=== PATIENT | male | born 1995 ===

== ENCOUNTER 2018-08-04 18:25 | Inpatient (IN) | payer OTHER ==
--- NOTE | 2018-08-04 18:36 | EDPHY ---
HPI/HX/ROS/PE/MDM Narrative: CHIEF COMPLAINT: M1 - delusions, homicidal ideation HPI: This patient is a 23 year old male arriving on M1 hold by police for delusions, ideas of grandeur, possible homicidal ideation. Police received a call from the patient's friend in [place] who had been talking to him on a social media messenger service. Per police summary, the patient had begun to discuss plans to "nuke [employer], and blow up [employer]" as well as talking about killing various people. The patient told the friend he was near the [employer] in [place], and police did find the patient there. The patient initially stated he had "WMDs " in his bag, but police found no weapons on him. He was reportedly agitated and manic-appearing on scene. The patient denies any significant past medical history. Denies recent illness or trauma. He appears calm and cooperative currently. REVIEW OF SYSTEMS: A comprehensive 10 system review of systems is otherwise negative aside from elements mentioned in the history of present illness and medical decision making. PMH: Patient denies. SOCIAL HISTORY: Single. Lives in [place]. PHYSICAL EXAM: General:Patient is awake, in no acute distress. Head: Atraumatic, normocephalic ENT:Eyes are normal to inspection. ENT inspection normal. Neck: Normal inspection. Full range of motion. Respiratory:No respiratory distress. No stridor. Skin: Normal color. No rash. Warm and dry. Extremities: Normal appearance. Full range of motion. Neuro: Normal motor function. Normal sensory function. Psychiatric: Disorganized. (Bhavin Pimentel) ED Course: 23 year old male arriving on M1 hold by police for delusions, ideas of grandeur , possible homicidal ideation. Exam unremarkable. Plan for labs including CBC, chemistries, tox screen. Initially calm during my interview, the patient became quite agitated around 19: 15. He began hitting his head against the wall and pounding his fists, yelling, kicking, and threatening to harm or kill staff. He refused PO Zyprexa. Administered 10mg IM Haldol and 2mg IM Ativan. The patient remained escalated and required physical restraints to protect the patient and staff. Labs largely unremarkable. Tox screen positive for marijuana. (Bhavin Pimentel ) Patient was stable throughout my shift, did not require any additional medication, is awaiting evaluation this morning. (Ana Mitchell) MDM: I assumed care of the patient at 0700am. 2:20 p.m.: The patient was accepted for involuntary psychiatric admission by Dr. Goldy Chaparro at [facility]. I have filled out the EMTALA transfer form. (Dorian Gaitan) - Data Points Laboratory Results: Laboratory Results 08/04/18 18:30 08/04/18 18:30 Medications Given: Discontinued Medications Haloperidol Lactate (Haldol Injection) 10 mg IM EDNOW ONE Stop: 08/04/18 19:22 Last Admin: 08/04/18 19:32 Dose: 10 mg Haloperidol Lactate (Haldol Injection) 5 mg IM EDNOW ONE Stop: 08/04/18 19:40 Last Admin: 08/04/18 20:41 Dose: 5 mg Lorazepam (Ativan Injection) 1 mg IM EDNOW ONE Stop: 08/04/18 19:22 Last Admin: 08/04/18 19:32 Dose: 1 mg Lorazepam (Ativan Injection) 2 mg IVP EDNOW ONE Stop: 08/04/18 19:40 Last Admin: 08/04/18 20:41 Dose: 2 mg Lorazepam (Ativan) 1 mg PO EDNOW ONE Stop: 08/04/18 20:19 Last Admin: 08/04/18 20:19 Dose: 1 mg Olanzapine (Zyprexa Zydis) 5 mg PO EDNOW ONE Stop: 08/04/18 19:18 Last Admin: 08/04/18 19:33 Dose: Not Given Olanzapine (Zyprexa Zydis) 10 mg PO EDNOW ONE Stop: 08/04/18 20:19 Last Admin: 08/04/18 20:19 Dose: 10 mg General Time Seen by Provider: 08/04/18 18:25 Initial Vital Signs: Initial Vital Signs Temperature (C) 36.7 C 08/04/18 18:33 Heart Rate 97 08/04/18 18:33 Respiratory Rate 16 08/04/18 18:33 Blood Pressure 130/106 H 08/04/18 18:33 O2 Sat (%) 98 08/04/18 18:33 O2 Delivery Mode Room Air Allergies/Adverse Reactions: No Known Allergies Allergy (Unverified 08/04/18 18:42) Home Medications: Medication Instructions Recorded Synthroid 08/04/18 Departure - Departure Disposition: [facility] IP Clinical Impression: Acute psychosis Condition: Good Report Scribed for: Bhavin Pimentel Report Scribed by: Shayy Allan Date of Report: 08/04/18 Time of Report: 19:04 Physician Review and Approval Statement: Portions of this note were transcribed by an ED scribe. I personally performed the history, physical exam, and medical decision making; and confirm the accuracy of the information in the transcribed note.
[2018-08-04 18:53] LABS: PLATELET COUNT 325 10^3/uL (150-400)
[2018-08-04] MEDS ORDERED: OLANZapine DISINTEGR 5 MG TAB PO ONE (19:17)
[2018-08-04] MEDS ORDERED: LORazepam 2 MG/ML INJ IM ONE (19:21)
[2018-08-04] MEDS ORDERED: HALOPERIDOL LACT 5 MG/ML INJ IM ONE ×2 (19:21→19:39)
[2018-08-04] MEDS ORDERED: LORazepam 2 MG/ML INJ ONE ×2 (19:22→19:39)
[2018-08-04] MEDS ORDERED: HALOPERIDOL LACT 5 MG/ML INJ ONE (19:22)
[2018-08-04] MEDS ORDERED: LORazepam 2 MG/ML INJ IVP ONE (19:39)
[2018-08-04] MEDS ORDERED: OLANZapine DISINTEGR 10 MG TAB ONE (20:15)
[2018-08-04] MEDS ORDERED: LORazepam 1 MG TAB ONE (20:16)
[2018-08-04] MEDS ORDERED: OLANZapine DISINTEGR 10 MG TAB PO ONE (20:18)
[2018-08-04] MEDS ORDERED: LORazepam 1 MG TAB PO ONE (20:18)
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
[2018-08-05] MEDS ORDERED: OLANZapine DISINTEGR 10 MG TAB ONE (14:17)
--- NOTE | 2018-08-05 14:21 | ASMTTCLDSP ---
TLC Discharge Disposition Disposition: Answers: Admit Disposition Notes: Notes: In consultation with [facility] ED physician, Alex Gaitan MD, and on-call HANDLE SEWER, Alvaro Corrigan both concurred that pt appears to meet 27-65 criteria requiring psychiatric hospitalization as pt appears to be at risk of harm to self due to a mental illness condition. Pt was given the 3[facility] prohibited belongings list while in the ED. Discharge Concerns/Recommendations: Notes: Pt admitted to [facility] BH unit. Was patient given the Answers: Yes Inpatient Behavioral Health Prohibited Belongings List while in the ED? For inpatient Alvaro Corrigan admission, the following psychiatrist agreed to accept patient for admission to Behavioral Health ([facility]): Type of Hold: Answers: M1/72-hour Hold Hold initiated by: Answers: Other Notes: Community Crisis Workforce Management Consultant Date Signed: 08/05/2018 02:20 PM Electronically Signed By:Kaylee Arrieta
[2018-08-05] MEDS ORDERED: OLANZapine DISINTEGR 10 MG TAB PO ONE (14:24)
--- NOTE | 2018-08-05 15:32 | GCON ---
MEDICINE CONSULTATION DATE OF CONSULTATION: 08/05/2018 CHIEF COMPLAINT: Psychosis. HISTORY OF PRESENT ILLNESS: This is a 23-year-old man with no prior records in our system, who prese nts after being brought in on an M1 hold by police for concerns of homicidal ideation, delusions, and acute psychosis. Apparently, per ER report, police had received a call from this patient's friend titus Trean who noted that he has been discussing plans to "nuke [employer] and blow up [employer]," as well as killing other people. At the time the patient was stating this, he had told his friend that he was n ear the [employer] in [place], and that is where police were able to pick him up. His stay in located within [facility] ER: He has been intermittently agitated and somewhat combative with staff. At the time my evalua tion, the patient is relatively cooperative, though slightly anxious appearing. PAST MEDICAL HISTORY: Per patient report includes hypertension, OCD, and ADHD. PAST SURGICAL HISTORY: Includes circumcision and repair of an eye laceration. FAMILY HISTORY: The patient notes his mother has schizophrenia and depression. Father with hyperten garry and diabetes. SOCIAL HISTORY: The patient states he is originally from [place] and has a computer science degree. He states he smokes a lot of marijuana, but denies alcohol or tobacco use. REVIEW OF SYSTEMS: Negative except as per HPI. MEDICATIONS: Reportedly include Synthroid. ALLERGIES: No known allergies. PHYSICAL EXAMINATION: VITAL SIGNS: BP 134/84, heart rate 85, respiratory rate 16, O2 saturation is 98% on room air, temperature is 37. GENERAL APPEARANCE: This is a disheveled male. He is awake and alert. He is anxious and somewhat agitated. EYES: Anicteric. HENT: Oropharynx clear. CARDIOVAS CULAR: Regular rate and rhythm, no MRG. PULMONARY: CTA bilaterally. SKIN: Warm, dry, well perfus ed. NEURO/PSYCH: The patient is awake, alert, with a normal gait. Strength and sensation seem to b e grossly intact as well as cranial nerves. CLINICAL DATA: Labs reviewed and notable for a white blood cell count of 12.9. Chemistry significan t for an elevated anion gap at 15 and a glucose of 126. Toxicity screen is positive only for marijua na. ASSESSMENT AND PLAN: This is a 23-year-old man with unknown past medical history, but per his report , obsessive-compulsive disorder and attention deficit hyperactivity disorder, presenting with acute p sychosis. 1. Acute psychosis with reported homicidal ideation and aggressive behavior while in the emergency d epartment. He is on an M1 hold and is to be admitted to Behavioral Health. No medical reason to def er any medication thought to be appropriate by psychiatry service. 2. Leukocytosis without other signs or symptoms of infection. No need to repeat at this point. 3. Hyperglycemia. Would recommend he follow up as an outpatient for recheck and to rule out diabete s. 4. Hypertension. This is mild and okay to be monitored at this point. Will not start new medicatio ns currently as I suspect this is at least in part related to his agitation. Thank you for this consultation. Medicine will be available peripherally should questions arise earl kelly this hospitalization. Patient is new to my care. Care plan reviewed with emergency room physician including plans for [facility]. /[id number]/MODL
[2018-08-05] MEDS ORDERED: MAGNESIUM HYDROXIDE 30 ML UDCUP PO PRN (18:40)
[2018-08-05] MEDS ORDERED: LORazepam 0.5 MG TAB PO PRN (18:40)
[2018-08-05] MEDS ORDERED: NICOTINE POLACRILEX 2 MG GUM B PRN (18:40)
[2018-08-05] MEDS ORDERED: ACETAMINOPHEN 325 MG TAB PO PRN (18:40)
[2018-08-05] MEDS ORDERED: MAG HYDROX/AL HYDROX/SIMETH 30 ML UDCUP PO PRN (18:40)
[2018-08-05] MEDS ORDERED: HALOPERIDOL 5 MG TAB PO PRN (18:49)
[2018-08-06] MEDS: LORazepam 1 MG TAB PO PRN (06:40)
[2018-08-06] MEDS ORDERED: LEVOTHYROXINE 137 MCG TAB PO ONE (07:01)
--- NOTE | 2018-08-06 08:00 | ASMTBHMTP ---
Master Treatment Plan Master Treatment Plan Answers: Mood Instability with for: Psychosis Date: 08/05/2018 Diagnosis on Admission: Unspecified Schizophrenia Spectrum and other Psychotic Disorders (298.54) (F31.5) Expected length of stay: 3-5 days Reason for admission: Notes: Per Report: Pt is a 23 year old Eastern [place] male who arrived to [facility] ED on a M1 hold initiated by police for delusional thoughts, ideas of grandeur, and possible homicidal ideation. According to ED report police had received a call from the patient's friend in [place] who had been talking to him on social media messenger service. Per police summary the patient had begun to discuss plans to "nuke [employer], and blow up [employer]." as well as taking about killing various people. The patient had apparently told the friend he was near the [employer] building in [place], and police did find the pt there. The patient initially stated he had WMD in his bag, but police found no weapons on him. He was reported to be agitated and manic appearing on the scene. The patient upon presenting to the ED denies any hx of medical problems recent illness or past trauma. Pt was given Ativan injections and Zyprexa. Last Zyprexa dose was at 20:19 on 08/04/18. Per ED notes pt required restraints from 20:50-21:45. Pt's utox was positive for marijuana. Per M1 hold pt was displaying intense delusional, magical thinking, ideas of grandeur with homicidal thoughts with intense speech, rambling and was illogical when seen in the community by mental health clinician. Pt had verbalized plan to 'blow up [place], etc.' Possible manic. Pt appeared to be agitated with intense anger. References prior mental illness. Patient's stated presenting problems: Notes: "Nothing, I was arrested after someone called and reported fake threats." Patient's goals for treatment: Notes: read, write and make propaganda for Mr. Gerardo..... I want to be his new chief steward/stewardess. Patient's strengths: Notes: adaptive Identify supports outside of hospital: Notes: family in [place] and some friends here in [place].* Discharge criteria: Notes: Patient will demonstrate more stable mood by discharge.* Initial disposition plan/considerations: Notes: To attend [facility] to finish my Ph.D. program. Master Treatment Plan Required Signatures Psychiatrist signature: Answers: Psychiatrist: RN on-shift signature: Answers: RN: Patient signature: Answers: Patient: Date Signed: 08/06/2018 07:59 AM Electronically Signed By:Miguel Barreto
[2018-08-06] MEDS ORDERED: RISPERIDONE 1 MG ODT TAB SL ONE (08:43)
[2018-08-06] MEDS ORDERED: RISPERIDONE 1 MG ODT TAB SL PRN (08:44)
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
[2018-08-06] MEDS ORDERED: LEVOTHYROXINE 137 MCG TAB ONE (11:37)
--- NOTE | 2018-08-06 12:17 | SOAPPROG ---
SOAP Progress Note Assessment/Plan: Assessment: Unspecified Psychosis. Substance Induced Psychosis. Cannabis Use Disorder, Severe. No improvement noted. (see subjective/objective note). Patient is not safe to discharge at this time as patient continues to exhibit signs of psychosis, and express psychosis symptoms. Patient requires continued inpatient care because of current psychosis, and requires inpatient level of care to stabilize in order to no longer be a danger to himself, danger to others , and gravely disabled due to mental illness. Patient could benefit from continued inpatient hospitalization for crisis stabilization, safety, and medication evaluation. Plan: 1. Psychotropic medications: After reviewing options, risks, and benefits patient agrees to continue current medications. No other medication changes at this time as more time is needed to determine ongoing tolerability and efficacy. Plan is to continue to observe patient for response and side effects from medications, and ongoing monitoring and evaluation. 2. Review with patient informed consent and recommendations for psychotropic medication treatment listed below 3. Labs: no additional labs at this time 4. Therapy: continue milieu and group therapy 5. Further investigation including gathering information from patients relatives and review of past case records to inform treatment plan. 6. Safety/Wellness plan and follow-up outpatient appointments to be established prior to discharge. Next steps are for patient to meet with long term care social worker to plan a safe discharge plan and establish outpatient services for ongoing treatment. 7. Confer with inpatient treatment team regarding treatment plan. 8. Psychosocial stressors addressed through case consultant 9. Legal status: M1 to [facility] 10. Consider discharge next week if patient is in stable condition, safe, and has a safe discharge plan. 11. Substance abuse interventions: cannabis PSYCHOTROPIC MEDICATION TREATMENT INFORMED CONSENT and RECOMMENDATIONS: Review nature of condition, diagnosis, and prognosis. Review nature and purpose of psychotropic medication treatment. Review type of psychotropic medications being ordered. Review risk and benefits of psychotropic medication treatment. Review probable length of time patient will need to take medications. Review risk and benefits of not undergoing psychotropic medication treatment. Review alternative treatments to psychotropic medications. Review psychotropic medications contraindications, drug-drug interactions, side effects, and importance of reporting any side effects to a psychiatric provider or nurse during inpatient hospitalization, and upon discharge to patients psychiatric outpatient provider, primary care provider, or other health lead caregiver. Review importance of asking a nurse, psychiatric provider, or primary care provider any questions or problems concerning the psychotropic medications. Verify patient understands the information that has been provided, and understands, accepts, and agrees to psychotropic medications. Review patients safety plan and importance of patient to report to staff while hospitalized if patient is ever a danger to self/others, or unable to care for self, and upon discharge, the importance for patient to contact [place] [facility] or [facility], or go to the nearest emergency room, if patient is ever a danger to self/others, or unable to care for self. Recommend that upon discharge patient establish medication management treatment with a psychiatric provider, establishes routine therapy appointments, and follow-up with primary care provider. Verify patient understands and agrees to these recommendations. 08/06/18 12:31 Subjective: With regard to why patient is hospitalized patient reports, "I made terroristic threats to [employer] and was arrested. The threats were not real, I was trying to get attention, media attention." Patient is agreeable to continue medications as prescribed. Patient responds fairly well to the need for him to be placed on a short-term certification for continued inpatient hospitalization. Patient reports "dabbing" cannabis 2 days ago, reports he uses cannabis daily, and states "maybe this is why I have been acting so weird lately? My bizarre behavior and thinking." Objective: Vital Signs Temp Pulse Resp BP Pulse Ox 36.7 C 112 H 15 165/85 H 97 08/06/18 06:00 08/06/18 06:00 08/06/18 06:00 08/06/18 06:00 08/06/18 06:00 TREATMENT TEAM MEETING: Patient presents with no signs of agitation and responds well to meeting. Patient received dose of Haldol 5 mg po and Ativan 1 mg po this AM at ~0700. Patient appears to be responding well and tolerating PRN medications. MSE: The patient is a well-nourished male looking stated chronological age. Attire is inappropriate and dress is casual and hospital garb. Patient is wearing hospital gown that is unbuttoned, and jeans that are falling off; needs to keep them up with his hands; jeans are unbuttoned; attire is disheveled. Grooming status is appropriate. Ambulation is independent. Gait is normal and coordinated. Posture is normal and relaxed. Eye contact is appropriate. Motor activity is appropriate with purposeful, organized, coordinated movements ; with no involuntary movements. Attitude is cooperative. Patient appears attentive and relates well to this interviewer and other treatment team members. Language production is spontaneous. R/R/V normal. Rate is fluent. Latency of response is adequate with variable tone, and appropriate volume, and amount is appropriate. Articulation is clear. Patient reports mood as okay with constricted, blunted, flat and incongruent and inappropriate affect. Patients thought process is non-linear and illogical, with loose associations, tangential thought. Patient does not report suicidal/homicidal thoughts, ideas, or plans. Patient denies auditory, visual hallucinations. Patient reports delusions. Patient does not appear to be attending to internal stimuli. Patients attention and concentration are adequate. Patient is oriented to person, place, time. Patients insight is poor. Patients judgment is poor. PHONE CALL WITH [employer] @ ~ 1100: This PHARMACY RETAIL SUPPORT SPECIALIST called [employer] [place] office and gave report of patient's statements regarding President [employer] to Ned Ross, Lumber Stacker. Contact information: [phone]-office. -cell. - Time Spent With Patient Time Spent With Patient: 15 minutes, patient met with treatment team at 1000. - Pending Discharge Pending Discharge Within 24 Hours: No Pending Discharge Within 48 Hours: No ICD10 Worksheet Patient Problems: Problems Problem Status Onset Acute psychosis Acute Cannabis use disorder, severe, dependence Acute Unspecified psychosis Acute
--- NOTE | 2018-08-06 15:29 | ASMTBHDC ---
Notes Note: Notes: CC was able to send referral to [facility] for out-patient services earlier. Client has a tentative [facility] apt for Friday 08/17 at [facility]. Follow up with: [facility] [address] [place] [address] Intake Appt/Screen: FridayAugust 17 (08/17/18) at 2:30pm with Kiki, at ([facility] on 2nd floor). Date Signed: 08/06/2018 03:28 PM Electronically Signed By:Miguel Barreto
[2018-08-07] MEDS ORDERED: LEVOTHYROXINE 137 MCG TAB PO SCH (06:00)
[2018-08-07] MEDS: LORazepam 1 MG TAB PO PRN (06:36)
[2018-08-07] MEDS ORDERED: LORazepam 1 MG TAB PO PRN (06:40)
[2018-08-07] MEDS ORDERED: LORazepam 1 MG TAB PO ONE (06:42)
[2018-08-07] MEDS ORDERED: LORazepam 1 MG TAB ONE (06:45)
[2018-08-07 06:53] VITALS: BP 140/96
--- NOTE | 2018-08-07 06:58 | SOAPPROG ---
SOAP Progress Note Assessment/Plan: Assessment: Unspecified Psychosis. Substance Induced Psychosis. Cannabis Use Disorder, Severe. No improvement noted. (see subjective/objective note). Patient is not safe to discharge at this time as patient continues to exhibit signs of psychosis, and express psychosis symptoms. Patient requires continued inpatient care because of current psychosis, and requires inpatient level of care to stabilize in order to no longer be a danger to himself, danger to others , and gravely disabled due to mental illness. Patient could benefit from continued inpatient hospitalization for crisis stabilization, safety, and medication evaluation. Plan: 1. Psychotropic medications: After reviewing options, risks, and benefits patient agrees to continue current medications with following changes: increase Risperidone M-tab to 2 mg SL QD, increase Ativan to 2 mg po Q4HRS PRN for acute agitation. No other medication changes at this time as more time is needed to determine ongoing tolerability and efficacy. Plan is to continue to observe patient for response and side effects from medications, and ongoing monitoring and evaluation. 2. Review with patient informed consent and recommendations for psychotropic medication treatment listed below 3. Labs: no additional labs at this time 4. Therapy: continue milieu and group therapy 5. Further investigation including gathering information from patients relatives and review of past case records to inform treatment plan. 6. Safety/Wellness plan and follow-up outpatient appointments to be established prior to discharge. Next steps are for patient to meet with daycare teacher to plan a safe discharge plan and establish outpatient services for ongoing treatment. 7. Confer with inpatient treatment team regarding treatment plan. 8. Psychosocial stressors addressed through ed case manager 9. Legal status: [facility] 10. Consider discharge next week if patient is in stable condition, safe, and has a safe discharge plan. 11. Substance abuse interventions: cannabis PSYCHOTROPIC MEDICATION TREATMENT INFORMED CONSENT and RECOMMENDATIONS: Review nature of condition, diagnosis, and prognosis. Review nature and purpose of psychotropic medication treatment. Review type of psychotropic medications being ordered. Review risk and benefits of psychotropic medication treatment. Review probable length of time patient will need to take medications. Review risk and benefits of not undergoing psychotropic medication treatment. Review alternative treatments to psychotropic medications. Review psychotropic medications contraindications, drug-drug interactions, side effects, and importance of reporting any side effects to a psychiatric provider or nurse during inpatient hospitalization, and upon discharge to patients psychiatric outpatient provider, primary care provider, or other health landcare facilitator. Review importance of asking a nurse, psychiatric provider, or primary care provider any questions or problems concerning the psychotropic medications. Verify patient understands the information that has been provided, and understands, accepts, and agrees to psychotropic medications. Review patients safety plan and importance of patient to report to staff while hospitalized if patient is ever a danger to self/others, or unable to care for self, and upon discharge, the importance for patient to contact [facility] or 1, or go to the nearest emergency room, if patient is ever a danger to self/others, or unable to care for self. Recommend that upon discharge patient establish medication management treatment with a psychiatric provider, establishes routine therapy appointments, and follow-up with primary care provider. Verify patient understands and agrees to these recommendations. 08/07/18 06:57 Subjective: Following up with patient for evaluation of psychosis and safety. Patient screams, "I AM GOING TO BREAK EVERYTHING IN THIS HOSPITAL IF I DO NOT GET OUT TODAY!" Patient expresses the following psychiatric symptoms severe agitation. Patient reports taking medications as prescribed, and describes response to medications as good. Patient does not report undesirable side effects from the medications, and agrees to continue current medications. Patient describes getting 8 hours of sleep. Patient agrees to Ativan 2 mg po and Risperidone M- tab 1 mg for acute agitation. Objective: Vital Signs Temp Pulse Resp BP Pulse Ox 36.6 C 102 H 20 140/96 H 97 08/07/18 06:00 08/07/18 06:00 08/07/18 06:00 08/07/18 06:00 08/06/18 06:00 NURSING REPORT: Consulted with nursing for update on patients progress in treatment. Nurses report patient is not engaged in treatment, is not attending groups, slept 8 hours, expresses the following psychiatric symptoms: severe agitation, exhibits the following psychiatric symptoms: severe agitation, irritability, threatening staff, posturing, staff describes patient as extremely dangerous; is eating all meals, is agreeable to medications and taking as prescribed with no report of side effects, with no s/s of EPS/ akathisia, and denies SI/HI, denies A/V hallucinations, and denies delusions. MSE: The patient is a well-nourished male looking stated chronological age. Attire is appropriate dress is casual. Grooming status is appropriate. Ambulation is independent. Gait is normal and coordinated. Posture is abnormal and tense and threatening, posturing. Eye contact is inappropriate and staring. Motor activity is appropriate with purposeful, organized, coordinated movements; with no involuntary movements. Attitude is uncooperative and hostile, angry. Patient appears distracted and does not relate well to this interviewer. Language production is spontaneous. Rate is pressured. Latency of response is shortened with irritable tone, screaming at this WILDLIFE FORENSIC GENETICIST. Articulation is clear. Patient reports mood as okay with expansive and inappropriate affect. Patients thought process is non-linear and illogical , with loose associations, tangential thought. Patient does not report suicidal/ homicidal thoughts, ideas, or plans. Patient reports plan to "break everything in hospital" if he does not get out today. Patient denies auditory, visual hallucinations. Patient reports delusions. Patient does not appear to be attending to internal stimuli. Patients attention and concentration are adequate. Patient is oriented to person, place, time. Patients insight is poor. Patients judgment is poor. - Time Spent With Patient Time Spent With Patient: 15 minutes, met with patient individually. - Pending Discharge Pending Discharge Within 24 Hours: No Pending Discharge Within 48 Hours: No ICD10 Worksheet Patient Problems: Problems Problem Status Onset Acute psychosis Acute Cannabis use disorder, severe, dependence Acute Unspecified psychosis Acute
[2018-08-07] MEDS ORDERED: RISPERIDONE 1 MG ODT TAB SL SCH ×2 (09:00)
[2018-08-07] MEDS ORDERED: OLANZapine DISINTEGR 10 MG TAB PO PRN (11:01)
[2018-08-07] MEDS ORDERED: OLANZapine 5 MG TAB PO ONE (11:01)
[2018-08-07] MEDS ORDERED: OLANZapine DISINTEGR 5 MG TAB ONE (11:04)
[2018-08-07] MEDS ORDERED: HALOPERIDOL LACT 5 MG/ML INJ IM PRN (11:21)
[2018-08-07] MEDS ORDERED: LORazepam 2 MG/ML INJ IM PRN (11:21)
[2018-08-07] MEDS ORDERED: HALOPERIDOL LACT 5 MG/ML INJ ONE ×2 (11:23→11:24)
[2018-08-07] MEDS ORDERED: LORazepam 2 MG/ML INJ ONE (11:25)
--- NOTE | 2018-08-07 14:09 | ASMTBHDC ---
Notes Note: Notes: Pt. reports feeling "pretty good". Pt. stated he slept "fine. 8 hours solid". Pt. report eating "plenty". Pt. stated he is attending groups "consistantly". Pt. stated "don't want it" when asked about staying in the hospital. Pt. stated he has use his [employer] kira to get home upon discharge and to get to his follow up appointments. Pt. stated he can fill and take his medications upon discharge. Pt. stated he wants to be discharge as soon as possible. Pt. stated "if they don't let me out, I'll get a chalk machine operator". Staff report pt. sleeping 7 hours and being medication compliant. Pt. was informed he was being placed on a STC,became upset, and needed to be secluded with restraints. Date Signed: 08/07/2018 02:09 PM Electronically Signed By:Mya Nelson
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
[2018-08-07] MEDS ORDERED: OLANZapine DISINTEGR 10 MG TAB PO SCH (21:00)
[2018-08-08] MEDS ORDERED: RISPERIDONE 2 MG ODT TAB SL SCH (09:00)
== END 2018-08-07 16:28 | DRG 885 ==
LOC: BBEH 08-05 17:50
PROVIDERS: ADMIT Registered Nurse; ATTEND Registered Nurse
DX: F29 Unspecified psychosis not due to a substance or known physiological condition (principal); R45.850 Homicidal ideations; F12.90 Cannabis use, unspecified, uncomplicated; I10 Essential (primary) hypertension; F42.9 Obsessive-compulsive disorder, unspecified; F90.9 Attention-deficit hyperactivity disorder, unspecified type; R73.9 Hyperglycemia, unspecified
CPT/HCPCS: 80305; 96374; J1200; J1630; J2060